=== PATIENT | female | born 1960 | race Caucasian/White ===

== ENCOUNTER 2018-12-22 13:43 | Outpatient (REF) | payer MEDICAID, SELFPAY ==
--- NOTE | 2018-12-22 12:20 | SKI_PTH ---
PATIENT: DESIRAE YEE LOC: [facility] U#:[id number] AGE/SX: 58/F ROOM: RE12/22/[address]: Allan Melchor MD : [id number] BED: DIS: 12/22/2018 SPEC #: [id number] RECD: 12/23/18 12:41 STATUS: KARIME REQ #: [id number] [facility]: 12/22/18 12:[address]: Allan Melchor DEPT: Surgical Specimen RECD BY: Mayela Stern Tissues: 1 - SKIN BIOPSY(SHAVE/PUNCH) Procedures: SKIN LEVEL 4 SPECIAL STAIN 1 Comments: [id number]
== END 2018-12-22 14:03 ==
LOC: LBN 13:43
PROVIDERS: Visit Provider Otolaryngology
DX: D10.39 Benign neoplasm of other parts of mouth (principal)
CPT/HCPCS: 88304; 88305; 88312